=== PATIENT | female | born 1940 | race Two or more races ===

== ENCOUNTER 2024-01-19 16:23 | Inpatient (IN) | payer MEDICARE, OTHER ==
[~2024-01-19] VITALS: Ht 152.4 cm; Wt 104.3 kg
[2024-01-19] VITALS (21 sets, daily range): BP systolic 56–131; BP diastolic 40–83; TEMP 98.8–101.1; O2SAT 93–100
[2024-01-19] MEDS ORDERED: LOSA50TA39 PO (16:52)
[2024-01-19] MEDS ORDERED: APIX2.5T PO (16:52)
[2024-01-19] MEDS ORDERED: FERR325T28 PO (16:52)
[2024-01-19] MEDS ORDERED: INSU100I30 SQ (16:52)
[2024-01-19] MEDS ORDERED: ATOR40TA PO (16:52)
[2024-01-19] MEDS ORDERED: DICL100G34 TP (16:52)
[2024-01-19] MEDS ORDERED: BUME1TAB8 PO (16:52)
[2024-01-19] MEDS ORDERED: INSU100I4 SQ (16:52)
[2024-01-19] MEDS ORDERED: OMEP40CA21 PO (16:52)
[2024-01-19] MEDS ORDERED: ACET325T53 PO (16:52)
[2024-01-19] MEDS ORDERED: METO25TA4 PO (16:52)
[2024-01-19] MEDS ORDERED: IV LR 1000 ML 1,000 ML IV PRN (17:00)
[2024-01-19] MEDS ORDERED: DEXTROSE 50%-WATER 50 ML DISP.SYRIN IV PRN ×2 (17:30→20:00)
[2024-01-19] MEDS ORDERED: ONDANSETRON HCL/PF 4 MG/2 ML VIAL IVP PRN (17:30)
[2024-01-19] MEDS: NOREPINEPHRINE 8 MG in IV D5W 242 ML IV PRN (17:37)
[2024-01-19] MEDS: IV NS 0.9% 1,000 ML IV PRN (17:37)
[2024-01-19 17:58] LABS: BASOPHILS % (AUTO) 0.1 % (0.0-2.0); HEMATOCRIT 42 % (33-45); LYMPHOCYTES # (AUTO) 1.1 K/uL (0.8-4.8); MEAN CORPUSCULAR HEMOGLOBIN 29 PG (26.0-33.0); MEAN CORPUSCULAR HGB CONC 31 g/dl (31.0-36.0); MEAN CORPUSCULAR VOLUME 94 fL (82-100); MONOCYTES # (AUTO) 0.6 K/uL (0.1-1.30); MONOCYTES % (AUTO) 2.2 % (2.0-12.0); NEUTROPHILS # (AUTO) 27.1 K/uL (1.8-8.9); NEUTROPHILS % (AUTO) 93.7 % (43.0-81.0); PLATELET COUNT (AUTO) 202 K/uL (150-450); RED BLOOD CELL COUNT(AUTO) 4.49 MIL/uL (4.0-5.2); RED CELL DISTRIBUTION WIDTH 17.4 % (11.5-15.0); WHITE BLOOD COUNT (AUTO) 28.9 K/uL (4.3-11.0)
[2024-01-19] MEDS: MORPHINE SULFATE INJ 2 MG/ML DISP.SYRIN IV PRN (18:01)
[2024-01-19] MEDS: ACETAMINOPHEN 650 MG/SUPP.RECT RC PRN (18:02)
[2024-01-19 18:10] LABS: CARBON DIOXIDE 16 mmol/L (21-32); CHLORIDE 98 mmol/L (98-107); CREATININE 3.7 mg/dL (0.6-1.3); GLUCOSE 393 mg/dL (74-106); MAGNESIUM 1.6 mg/dL (1.8-2.4); POTASSIUM 5.5 mmol/L (3.5-5.1); SODIUM SERUM 133 mmol/L (136-145)
[2024-01-19] MEDS: BLOOD SUGAR DIAGNOSTIC 1 EACH STRIP IN SCH ×2 (18:17→23:49)
[2024-01-19] MEDS: Calcium Gluconate 1GM/10ML 9.3 MEQ in IV NS 0.9% 100 ML IV ONE (18:36)
[2024-01-19 18:39] LABS: CALCIUM, SERUM 4.7 mg/dL (8.5-10.1)
[2024-01-19 18:40] LABS: UREA NITROGEN, BLOOD 82 mg/dL (7-18)
[2024-01-19] MEDS: INSULIN REGULAR, HUMAN 100 UNIT/ML 3 ML VIAL SQ PRN ×2 (18:41→23:58)
[2024-01-19 20:13] LABS: ALANINE AMINOTRANSFERASE 51 U/L (12-78); ALBUMIN 2.1 g/dL (3.4-5.0); ALKALINE PHOSPHATASE 84 U/L (46-116); ASPARTATE AMINOTRANSFERASE 83 U/L (15-37); BILIRUBIN,DIRECT 0.2 mg/dL (0.0-0.2); BILIRUBIN,TOTAL 0.5 mg/dL (0.2-1.0); TOTAL PROTEIN, SERUM 6.1 g/dL (6.4-8.2)
[2024-01-19 20:17] LABS: LIPASE > 375 U/L (16-77)
[2024-01-19] MEDS: VANCOMYCIN HCL 1.25 GM in IV D5W 250 ML IV ONE (20:30)
[2024-01-19 20:41] LABS: INR 1.32 (0.91-1.10); PROTHROMBIN TIME 13.7 SECS (9.2-11.1)
[2024-01-19] MEDS: PROPOFOL 100 ML IV PRN (20:52)
[2024-01-19] MEDS ORDERED: ENOXAPARIN SODIUM 30 MG/0.3 ML DISP.SYRIN SQ SCH (21:00)
[2024-01-19] MEDS ORDERED: PROPOFOL 200 MG/20 ML VIAL IV ONE (21:01)
[2024-01-19] MEDS: MEROPENEM 500 MG in IV NS 0.9% 50 ML IV SCH (21:28)
[2024-01-19] MEDS: HEPARIN INFUSION/D5W 500 ML IV PRN (21:31)
[2024-01-19] MEDS: Sodium Bicarbonate 100 MEQ in IV 1/2NS 1000 ML 1,000 ML IV PRN (22:20)
[2024-01-19] MEDS: SODIUM BICARBONATE SYR 50 MEQ/50 ML DISP.SYRIN ONE (22:52)
[2024-01-20] VITALS (83 sets, daily range): BP systolic 62–167; BP diastolic 31–91; TEMP 98.2–98.8; O2SAT 97–100
[2024-01-20 05:13] LABS: BASOPHILS % (AUTO) 0.1 % (0.0-2.0); HEMATOCRIT 39 % (33-45); HEMOGLOBIN 12.5 g/dL (11.5-14.8); LYMPHOCYTES # (AUTO) 1.6 K/uL (0.8-4.8); LYMPHOCYTES % (AUTO) 5.6 % (20.0-44.0); MEAN CORPUSCULAR HEMOGLOBIN 30 PG (26.0-33.0); MEAN CORPUSCULAR HGB CONC 32 g/dl (31.0-36.0); MEAN CORPUSCULAR VOLUME 93 fL (82-100); MONOCYTES # (AUTO) 0.7 K/uL (0.1-1.30); MONOCYTES % (AUTO) 2.6 % (2.0-12.0); NEUTROPHILS # (AUTO) 26.4 K/uL (1.8-8.9); NEUTROPHILS % (AUTO) 91.7 % (43.0-81.0); PLATELET COUNT (AUTO) 192 K/uL (150-450); RED CELL DISTRIBUTION WIDTH 16.8 % (11.5-15.0); WHITE BLOOD COUNT (AUTO) 28.8 K/uL (4.3-11.0)
[2024-01-20 05:36] LABS: CHOLESTEROL 58 mg/dL (<200); HDL CHOLESTEROL 19 mg/dL (40-60); LDL 21 mg/dL (0-99); TRIGLYCERIDES 158 mg/dL (30-150)
[2024-01-20 06:45] LABS: BAND % (MANUAL) 6 % (0.0-5.0); LYMPHOCYTES % (MANUAL) 4 % (16-48); METAMYELOCYTES % 1 % (0-0); MONOCYTES % (MANUAL) 3 % (0-11.0); MYELOCYTES % 1 % (0-0); NEUTROPHILS % (MANUAL) 84 (42-76); PLATELET ESTIMATE ADEQUATE; PROMYELOCYTES % 1 % (0-0); SMUDGE CELLS FEW
[2024-01-20 06:46] LABS: ANISOCYTOSIS 1+
[2024-01-20 08:50] LABS: CARBON DIOXIDE 11 mmol/L (21-32); CHLORIDE 97 mmol/L (98-107); CREATININE 4.1 mg/dL (0.6-1.3); MAGNESIUM 1.6 mg/dL (1.8-2.4); PHOSPHORUS 2.8 mg/dL (2.5-4.9); POTASSIUM 5.6 mmol/L (3.5-5.1); SODIUM SERUM 128 mmol/L (136-145); UREA NITROGEN, BLOOD 80 mg/dL (7-18)
[2024-01-20 08:59] LABS: LIPASE > 375 U/L (16-77)
[2024-01-20 09:00] LABS: CALCIUM, SERUM 4.4 mg/dL (8.5-10.1); GLUCOSE 417 mg/dL (74-106)
[2024-01-20] MEDS: PANTOPRAZOLE 40 MG VIAL IV SCH (09:33)
[2024-01-20] MEDS: HYDROCORTISONE SOD SUCCINATE 100 MG/2 ML VIAL IV SCH (09:33)
[2024-01-20] MEDS: Calcium Gluconate 1GM/10ML 9.3 MEQ in IV NS 0.9% 100 ML IV ONE ×2 (14:12→17:35)
[2024-01-20] MEDS: BLOOD SUGAR DIAGNOSTIC 1 EACH STRIP IN SCH (15:00)
[2024-01-20] MEDS: INSULIN REGULAR, HUMAN 100 UNIT in IV NS 0.9% 99 ML IV PRN (15:48)
[2024-01-20] MEDS ORDERED: BLOOD SUGAR DIAGNOSTIC 1 EACH STRIP IN SCH (17:00)
[2024-01-20] MEDS ORDERED: DOSE PER PHARMACY MICAFUNGIN 1 EA XX PRN (17:00)
[2024-01-20] MEDS: MICAFUNGIN SODIUM 100 MG in IV NS 0.9% 100 ML IV SCH (17:59)
[2024-01-20] MEDS ORDERED: POTASSIUM PHOSPHATE MM 7.5 MMOL in IV NS 0.9% 100 ML IV SCH (18:30)
[2024-01-20] MEDS: VANCOMYCIN POST DIALYSIS 500MG IV PRN (18:53)
[2024-01-20 20:16] LABS: CARBON DIOXIDE 22 mmol/L (21-32); GLUCOSE 247 mg/dL (74-106); UREA NITROGEN, BLOOD 41 mg/dL (7-18)
[2024-01-20 20:24] LABS: CHLORIDE 94 mmol/L (98-107); CREATININE 2.8 mg/dL (0.6-1.3); MAGNESIUM 1.2 mg/dL (1.8-2.4); POTASSIUM 3.4 mmol/L (3.5-5.1); SODIUM SERUM 132 mmol/L (136-145)
[2024-01-20 20:31] LABS: CALCIUM, SERUM 5.4 mg/dL (8.5-10.1)
[2024-01-21] VITALS (97 sets, daily range): BP systolic 52–193; BP diastolic 34–90; TEMP 98–99.5; O2SAT 96–100
[2024-01-21] MEDS: SODIUM BICARBONATE SYR 50 MEQ/50 ML DISP.SYRIN ONE (01:45)
[2024-01-21 01:55] LABS: CARBON DIOXIDE 23 mmol/L (21-32); CHLORIDE 94 mmol/L (98-107); CREATININE 2.9 mg/dL (0.6-1.3); GLUCOSE 222 mg/dL (74-106); POTASSIUM 3.7 mmol/L (3.5-5.1); SODIUM SERUM 131 mmol/L (136-145); UREA NITROGEN, BLOOD 44 mg/dL (7-18)
[2024-01-21 02:16] LABS: CALCIUM, SERUM 4.9 mg/dL (8.5-10.1)
[2024-01-21 05:06] LABS: EOSINOPHILS # (AUTO) 0.4 K/uL (0.0-0.7); EOSINOPHILS % (AUTO) 1.6 % (0.0-6.0); HEMATOCRIT 32 % (33-45); HEMOGLOBIN 10.6 g/dL (11.5-14.8); LYMPHOCYTES # (AUTO) 1.1 K/uL (0.8-4.8); LYMPHOCYTES % (AUTO) 4.4 % (20.0-44.0); MEAN CORPUSCULAR HEMOGLOBIN 30 PG (26.0-33.0); MEAN CORPUSCULAR HGB CONC 34 g/dl (31.0-36.0); MEAN CORPUSCULAR VOLUME 88 fL (82-100); MONOCYTES # (AUTO) 0.5 K/uL (0.1-1.30); NEUTROPHILS # (AUTO) 22.5 K/uL (1.8-8.9); PLATELET COUNT (AUTO) 121 K/uL (150-450); RED BLOOD CELL COUNT(AUTO) 3.57 MIL/uL (4.0-5.2); RED CELL DISTRIBUTION WIDTH 16.1 % (11.5-15.0); WHITE BLOOD COUNT (AUTO) 24.5 K/uL (4.3-11.0)
[2024-01-21 05:34] LABS: ALANINE AMINOTRANSFERASE 105 U/L (12-78); ALKALINE PHOSPHATASE 68 U/L (46-116); ASPARTATE AMINOTRANSFERASE 220 U/L (15-37); BILIRUBIN,TOTAL 0.6 mg/dL (0.2-1.0); CARBON DIOXIDE 25 mmol/L (21-32); CHLORIDE 94 mmol/L (98-107); CREATININE 2.8 mg/dL (0.6-1.3); GLUCOSE 201 mg/dL (74-106); MAGNESIUM 1.2 mg/dL (1.8-2.4); PHOSPHORUS 2.4 mg/dL (2.5-4.9); POTASSIUM 3.8 mmol/L (3.5-5.1); SODIUM SERUM 131 mmol/L (136-145); TOTAL PROTEIN, SERUM 4.3 g/dL (6.4-8.2); UREA NITROGEN, BLOOD 42 mg/dL (7-18)
[2024-01-21 05:42] LABS: ALBUMIN 1.2 g/dL (3.4-5.0); CALCIUM, SERUM 4.2 mg/dL (8.5-10.1)
[2024-01-21] MEDS: Calcium Gluconate 0.465 MEQ/ML VIAL IV ONE ×2 (06:08→22:00)
[2024-01-21] MEDS: Calcium Gluconate 1GM/10ML 4.65 MEQ in IV NS 0.9% 100 ML IV ONE ×2 (06:09→22:00)
[2024-01-21 10:23] LABS: BAND % (MANUAL) 3 % (0.0-5.0); LYMPHOCYTES % (MANUAL) 4 % (16-48); MONOCYTES % (MANUAL) 5 % (0-11.0); NEUTROPHILS % (MANUAL) 88 (42-76)
[2024-01-21 10:24] LABS: ANISOCYTOSIS 1+; PLATELET ESTIMATE DECREASED
[2024-01-21] MEDS: Sodium Bicarbonate 100 MEQ in IV 1/2NS 1000 ML 1,000 ML IV SCH (11:30)
[2024-01-21 13:29] LABS: BASOPHILS % (AUTO) 0.1 % (0.0-2.0); EOSINOPHILS # (AUTO) 0.2 K/uL (0.0-0.7); EOSINOPHILS % (AUTO) 0.8 % (0.0-6.0); HEMATOCRIT 32 % (33-45); HEMOGLOBIN 10.4 g/dL (11.5-14.8); MEAN CORPUSCULAR HEMOGLOBIN 29 PG (26.0-33.0); MEAN CORPUSCULAR HGB CONC 33 g/dl (31.0-36.0); MEAN CORPUSCULAR VOLUME 88 fL (82-100); MONOCYTES # (AUTO) 0.5 K/uL (0.1-1.30); MONOCYTES % (AUTO) 2.2 % (2.0-12.0); NEUTROPHILS # (AUTO) 18.9 K/uL (1.8-8.9); NEUTROPHILS % (AUTO) 91.9 % (43.0-81.0); PLATELET COUNT (AUTO) 131 K/uL (150-450); RED BLOOD CELL COUNT(AUTO) 3.59 MIL/uL (4.0-5.2); WHITE BLOOD COUNT (AUTO) 20.5 K/uL (4.3-11.0)
[2024-01-21 13:49] LABS: BAND % (MANUAL) 2 % (0.0-5.0); LYMPHOCYTES % (MANUAL) 5 % (16-48); METAMYELOCYTES % 1 % (0-0); MONOCYTES % (MANUAL) 2 % (0-11.0); NEUTROPHILS % (MANUAL) 87 (42-76)
[2024-01-21 13:50] LABS: MYELOCYTES % 1 % (0-0); PLATELET ESTIMATE DECREASED; PROMYELOCYTES % 1 % (0-0)
[2024-01-21 13:51] LABS: ANISOCYTOSIS 1+
[2024-01-21 15:57] LABS: PHOSPHORUS 3.1 mg/dL (2.5-4.9)
[2024-01-21 16:12] LABS: MAGNESIUM 1.1 mg/dL (1.8-2.4)
[2024-01-21 16:46] LABS: CARBON DIOXIDE 26 mmol/L (21-32); CHLORIDE 91 mmol/L (98-107); GLUCOSE 259 mg/dL (74-106); POTASSIUM 3.6 mmol/L (3.5-5.1); SODIUM SERUM 129 mmol/L (136-145); UREA NITROGEN, BLOOD 46 mg/dL (7-18)
[2024-01-21 16:59] LABS: CALCIUM, SERUM 3.6 mg/dL (8.5-10.1)
[2024-01-21] MEDS: NOREPINEPHRINE 32 MG in IV NS 0.9% 250 ML IV PRN (19:06)
[2024-01-21 20:37] LABS: CARBON DIOXIDE 28 mmol/L (21-32); CHLORIDE 96 mmol/L (98-107); CREATININE 2.1 mg/dL (0.6-1.3); GLUCOSE 218 mg/dL (74-106); POTASSIUM 3.5 mmol/L (3.5-5.1); SODIUM SERUM 136 mmol/L (136-145); UREA NITROGEN, BLOOD 27 mg/dL (7-18)
[2024-01-21 20:44] LABS: CALCIUM, SERUM 4.5 mg/dL (8.5-10.1)
[2024-01-22] VITALS (98 sets, daily range): BP systolic 75–174; BP diastolic 34–86; TEMP 97.6–99.6; O2SAT 83–100
[2024-01-22] MEDS: BLOOD SUGAR DIAGNOSTIC 1 EACH STRIP IN SCH (00:27)
[2024-01-22] MEDS: INSULIN REGULAR, HUMAN 100 UNIT/ML 3 ML VIAL SQ PRN (00:29)
[2024-01-22 04:25] LABS: EOSINOPHILS % (AUTO) 0.4 % (0.0-6.0); HEMATOCRIT 28 % (33-45); HEMOGLOBIN 9.5 g/dL (11.5-14.8); LYMPHOCYTES # (AUTO) 0.7 K/uL (0.8-4.8); MEAN CORPUSCULAR HEMOGLOBIN 30 PG (26.0-33.0); MEAN CORPUSCULAR HGB CONC 34 g/dl (31.0-36.0); MEAN CORPUSCULAR VOLUME 89 fL (82-100); MONOCYTES # (AUTO) 0.3 K/uL (0.1-1.30); MONOCYTES % (AUTO) 2.6 % (2.0-12.0); PLATELET COUNT (AUTO) 91 K/uL (150-450); RED BLOOD CELL COUNT(AUTO) 3.16 MIL/uL (4.0-5.2); RED CELL DISTRIBUTION WIDTH 15.5 % (11.5-15.0); WHITE BLOOD COUNT (AUTO) 12.1 K/uL (4.3-11.0)
[2024-01-22 04:43] LABS: ALANINE AMINOTRANSFERASE 68 U/L (12-78); ALKALINE PHOSPHATASE 84 U/L (46-116); ASPARTATE AMINOTRANSFERASE 137 U/L (15-37); BILIRUBIN,TOTAL 0.9 mg/dL (0.2-1.0); CARBON DIOXIDE 30 mmol/L (21-32); CHLORIDE 94 mmol/L (98-107); CREATININE 2.4 mg/dL (0.6-1.3); GLUCOSE 286 mg/dL (74-106); MAGNESIUM 1.3 mg/dL (1.8-2.4); PHOSPHORUS 3.6 mg/dL (2.5-4.9); POTASSIUM 3.3 mmol/L (3.5-5.1); SODIUM SERUM 134 mmol/L (136-145); TOTAL PROTEIN, SERUM 3.8 g/dL (6.4-8.2); UREA NITROGEN, BLOOD 34 mg/dL (7-18)
[2024-01-22 05:03] LABS: ALBUMIN 1.1 g/dL (3.4-5.0); CALCIUM, SERUM 3.8 mg/dL (8.5-10.1)
[2024-01-22] MEDS: Calcium Gluconate 0.465 MEQ/ML VIAL IV ONE (06:00)
[2024-01-22] MEDS: Calcium Gluconate 1GM/10ML 4.65 MEQ in IV NS 0.9% 100 ML IV ONE (06:00)
[2024-01-22 06:03] LABS: ANISOCYTOSIS 1+; BAND % (MANUAL) 2 % (0.0-5.0); BASOPHILS % (MANUAL) 0 % (0.0-2.0); EOSINOPHILS % (MANUAL) 0 % (0-4); HYPOCHROMASIA RARE; LYMPHOCYTES % (MANUAL) 5 % (16-48); MONOCYTES % (MANUAL) 1 % (0-11.0); NEUTROPHILS % (MANUAL) 92 (42-76); PLATELET ESTIMATE DECREASED
[2024-01-22] MEDS: POTASSIUM CL. PREMIX PERIPHER. 50 ML IV SCH (09:42)
[2024-01-22] MEDS: Magnesium 1GM/D5W 100ML PREMIX 100 ML IV SCH (09:42)
[2024-01-22 09:43] LABS: ABG BASE EXCESS 1.4 mmol/L (-2.0-2.0); ABG OXYGEN SATURATION 94.3 % (92.0-98.5); ABG PCO2 29.4 mmHg (35.0-45.0); ABG PH 7.524 (7.350-7.450); ABG PO2 69.4 mmHg (75.0-100.0); ABG TOTAL HEMOGLOBIN 10.3 G/dL (12.0-16.0); COHb 0.3 % (0.5-1.5); SITE, ABG Right Radial
[2024-01-22] MEDS: IV NS 0.9% 1,000 ML IV PRN (09:50)
[2024-01-22 09:54] LABS: ABG BASE EXCESS 1.7 mmol/L (-2.0-2.0); ABG OXYGEN SATURATION 94.3 % (92.0-98.5); ABG PCO2 28.1 mmHg (35.0-45.0); ABG PO2 65.7 mmHg (75.0-100.0); ABG TOTAL HEMOGLOBIN 11.6 G/dL (12.0-16.0); AaDO2 187.2 mmHg; COHb 0.5 % (0.5-1.5); MetHb 0.3 % (0.0-1.5); O2Hb 93.5 % (94.0-97.0); SITE, ABG Right Radial
[2024-01-22] MEDS ORDERED: IV NS 0.9% 1,000 ML BAG IV PRN (10:00)
[2024-01-22 16:40] LABS: APPEARANCE,URINE SLIGHTLY CLOUDY (CLEAR); BILIRUBIN,URINE 2+ (NEGATIVE); BLOOD, URINE 1+ Ery/uL (NEGATIVE); COLOR,URINE AMBER (YELLOW); KETONES,URINE TRACE mg/dL (NEGATIVE); LEUKOCYTE ESTERASE ,URINE NEGATIVE (NEGATIVE); NITRITE, URINE POSITIVE (NEGATIVE); PROTEIN,URINE 2+ mg/dl (NEGATIVE); UGLUCOSE TRACE mg/dL (NEGATIVE)
[2024-01-22 17:04] LABS: URINE AMORPHOUS URATE Few /HPF (None Seen)
[2024-01-22 17:05] LABS: MUCUS,URINE Rare /LPF (None Seen)
[2024-01-22 17:07] LABS: COARSE GRANULAR CASTS,URINE Few /LPF (None Seen)
[2024-01-22 17:08] LABS: ADD URINE CULTURE YES; BACTERIA,URINE 1+ /HPF (None Seen)
[2024-01-22] MEDS ORDERED: VANCOMYCIN 1 GM in IV D5W 250ml IV SCH (20:00)
[2024-01-23] VITALS (83 sets, daily range): BP systolic 65–148; BP diastolic 22–74; TEMP 97.6–97.9; O2SAT 98–100
[2024-01-23 03:07] LABS: HEPATITIS B SURFACE AB Non Reactive (.)
[2024-01-23] MEDS: IV NS 0.9% 250 ML IV PRN (04:30)
[2024-01-23 04:51] LABS: EOSINOPHILS # (AUTO) 0.1 K/uL (0.0-0.7); EOSINOPHILS % (AUTO) 0.6 % (0.0-6.0); HEMATOCRIT 26 % (33-45); HEMOGLOBIN 8.7 g/dL (11.5-14.8); LYMPHOCYTES % (AUTO) 8.2 % (20.0-44.0); MEAN CORPUSCULAR HEMOGLOBIN 30 PG (26.0-33.0); MEAN CORPUSCULAR HGB CONC 33 g/dl (31.0-36.0); MEAN CORPUSCULAR VOLUME 88 fL (82-100); MONOCYTES # (AUTO) 0.4 K/uL (0.1-1.30); MONOCYTES % (AUTO) 2.8 % (2.0-12.0); NEUTROPHILS # (AUTO) 11.2 K/uL (1.8-8.9); NEUTROPHILS % (AUTO) 88.4 % (43.0-81.0); PLATELET COUNT (AUTO) 72 K/uL (150-450); RED BLOOD CELL COUNT(AUTO) 2.96 MIL/uL (4.0-5.2); WHITE BLOOD COUNT (AUTO) 12.6 K/uL (4.3-11.0)
[2024-01-23 05:09] LABS: CARBON DIOXIDE 24 mmol/L (21-32); CHLORIDE 98 mmol/L (98-107); CREATININE 2.4 mg/dL (0.6-1.3); GLUCOSE 225 mg/dL (74-106); MAGNESIUM 1.6 mg/dL (1.8-2.4); PHOSPHORUS 3.6 mg/dL (2.5-4.9); POTASSIUM 2.8 mmol/L (3.5-5.1); SODIUM SERUM 137 mmol/L (136-145); UREA NITROGEN, BLOOD 36 mg/dL (7-18)
[2024-01-23 05:19] LABS: CALCIUM, SERUM 3.8 mg/dL (8.5-10.1)
[2024-01-23 05:56] LABS: ANISOCYTOSIS 1+; BASOPHILS % (MANUAL) 0 % (0.0-2.0); EOSINOPHILS % (MANUAL) 0 % (0-4); LYMPHOCYTES % (MANUAL) 6 % (16-48); MONOCYTES % (MANUAL) 3 % (0-11.0); NEUTROPHILS % (MANUAL) 91 (42-76); PLATELET ESTIMATE DECREASED
[2024-01-23] MEDS ORDERED: Z GUARD REMEDY 4 OZ OINT TP PRN (08:00)
[2024-01-23] MEDS: CLOTRIMAZOLE 1% 15 GM TUBE TP SCH (08:24)
[2024-01-23] MEDS: Z GUARD REMEDY 4 OZ OINT TP SCH (08:25)
[2024-01-23] MEDS ORDERED: GLUCERNA 1.2 1,000 ML BOTTLE NG PRN (11:30)
[2024-01-23] MEDS: NEPRO 1,000 ML BOTTLE GT PRN (12:36)
[2024-01-23] MEDS: PROSOURCE / PROSTAT (PYXIS) 30 ML UDC GT SCH (13:46)
[2024-01-24] VITALS (76 sets, daily range): BP systolic 66–159; BP diastolic 35–92; TEMP 97.8–98.6; O2SAT 92–100
[2024-01-24 05:12] LABS: EOSINOPHILS # (AUTO) 0.2 K/uL (0.0-0.7); HEMATOCRIT 27 % (33-45); HEMOGLOBIN 9.2 g/dL (11.5-14.8); LYMPHOCYTES # (AUTO) 0.8 K/uL (0.8-4.8); LYMPHOCYTES % (AUTO) 4.8 % (20.0-44.0); MEAN CORPUSCULAR HEMOGLOBIN 30 PG (26.0-33.0); MEAN CORPUSCULAR HGB CONC 34 g/dl (31.0-36.0); MEAN CORPUSCULAR VOLUME 89 fL (82-100); MONOCYTES # (AUTO) 0.6 K/uL (0.1-1.30); MONOCYTES % (AUTO) 3.6 % (2.0-12.0); NEUTROPHILS # (AUTO) 14.2 K/uL (1.8-8.9); NEUTROPHILS % (AUTO) 90.6 % (43.0-81.0); PLATELET COUNT (AUTO) 73 K/uL (150-450); RED BLOOD CELL COUNT(AUTO) 3.07 MIL/uL (4.0-5.2); RED CELL DISTRIBUTION WIDTH 15.8 % (11.5-15.0); WHITE BLOOD COUNT (AUTO) 15.7 K/uL (4.3-11.0)
[2024-01-24 05:16] LABS: CARBON DIOXIDE 20 mmol/L (21-32); CHLORIDE 97 mmol/L (98-107); CREATININE 2.5 mg/dL (0.6-1.3); GLUCOSE 255 mg/dL (74-106); PHOSPHORUS 4.7 mg/dL (2.5-4.9); POTASSIUM 3.1 mmol/L (3.5-5.1); SODIUM SERUM 132 mmol/L (136-145); UREA NITROGEN, BLOOD 36 mg/dL (7-18)
[2024-01-24 05:48] LABS: CALCIUM, SERUM 3.5 mg/dL (8.5-10.1)
[2024-01-24 06:30] LABS: ANISOCYTOSIS 1+; BASOPHILS % (MANUAL) 0 % (0.0-2.0); EOSINOPHILS % (MANUAL) 0 % (0-4); LYMPHOCYTES % (MANUAL) 6 % (16-48); MONOCYTES % (MANUAL) 4 % (0-11.0); NEUTROPHILS % (MANUAL) 90 (42-76); PLATELET ESTIMATE DECREASED
[2024-01-24] MEDS: Calcium Gluconate 1GM/10ML 4.65 MEQ in IV NS 0.9% 100 ML IV ONE ×2 (08:05→21:21)
[2024-01-24 09:06] LABS: BILIRUBIN,DIRECT 0.6 mg/dL (0.0-0.2); TOTAL PROTEIN, SERUM 4.1 g/dL (6.4-8.2)
[2024-01-24] MEDS: CALCIUM CARBONATE 1,250 MG/5 ML UDC GT SCH (14:05)
[2024-01-25] VITALS (99 sets, daily range): BP systolic 73–173; BP diastolic 36–74; TEMP 98.3–98.8; O2SAT 97–100
[2024-01-25 05:10] LABS: EOSINOPHILS % (AUTO) 0.1 % (0.0-6.0); HEMATOCRIT 26 % (33-45); HEMOGLOBIN 8.4 g/dL (11.5-14.8); LYMPHOCYTES % (AUTO) 7.2 % (20.0-44.0); MEAN CORPUSCULAR HEMOGLOBIN 29 PG (26.0-33.0); MEAN CORPUSCULAR HGB CONC 33 g/dl (31.0-36.0); MEAN CORPUSCULAR VOLUME 89 fL (82-100); MONOCYTES # (AUTO) 0.3 K/uL (0.1-1.30); NEUTROPHILS % (AUTO) 90.7 % (43.0-81.0); PLATELET COUNT (AUTO) 59 K/uL (150-450); RED CELL DISTRIBUTION WIDTH 15.8 % (11.5-15.0); WHITE BLOOD COUNT (AUTO) 14.3 K/uL (4.3-11.0)
[2024-01-25 05:36] LABS: ANISOCYTOSIS 1+; BAND % (MANUAL) 3 % (0.0-5.0); BASOPHILS % (MANUAL) 0 % (0.0-2.0); EOSINOPHILS % (MANUAL) 0 % (0-4); LYMPHOCYTES % (MANUAL) 9 % (16-48); MONOCYTES % (MANUAL) 3 % (0-11.0); NEUTROPHILS % (MANUAL) 85 (42-76); PLATELET ESTIMATE DECREASED
[2024-01-25 06:15] LABS: CARBON DIOXIDE 22 mmol/L (21-32); CHLORIDE 100 mmol/L (98-107); CREATININE 2.9 mg/dL (0.6-1.3); GLUCOSE 336 mg/dL (74-106); PHOSPHORUS 5.3 mg/dL (2.5-4.9); POTASSIUM 2.8 mmol/L (3.5-5.1); SODIUM SERUM 137 mmol/L (136-145); UREA NITROGEN, BLOOD 43 mg/dL (7-18)
[2024-01-25 07:11] LABS: CALCIUM, SERUM 4.6 mg/dL (8.5-10.1)
[2024-01-25] MEDS: Calcium Gluconate 1GM/10ML 4.65 MEQ in IV NS 0.9% 100 ML IV ONE ×2 (08:15→11:53)
[2024-01-25] MEDS: PHENYLEPHRINE 100 MG in IV NS 0.9% 240 ML IV PRN (18:24)
[2024-01-25 21:01] LABS: LACTIC ACID 11.7 mmol/L (0.4-2.0)
[2024-01-25 21:08] LABS: CREATINE KINASE, TOTAL 3685 U/L (26-192)
[2024-01-26] VITALS (90 sets, daily range): BP systolic 54–144; BP diastolic 19–76; TEMP 98.7–98.9; O2SAT 63–100
[2024-01-26 00:44] LABS: BILIRUBIN,DIRECT 1.2 mg/dL (0.0-0.2); BILIRUBIN,TOTAL 1.6 mg/dL (0.2-1.0)
[2024-01-26 00:50] LABS: LACTIC ACID REFLEX 11.3 mmol/L (0.4-1.9)
[2024-01-26 05:18] LABS: BASOPHILS % (AUTO) 0.1 % (0.0-2.0); HEMATOCRIT 30 % (33-45); HEMOGLOBIN 9.4 g/dL (11.5-14.8); LYMPHOCYTES # (AUTO) 1.8 K/uL (0.8-4.8); MEAN CORPUSCULAR HEMOGLOBIN 29 PG (26.0-33.0); MEAN CORPUSCULAR HGB CONC 32 g/dl (31.0-36.0); MEAN CORPUSCULAR VOLUME 92 fL (82-100); MONOCYTES # (AUTO) 0.9 K/uL (0.1-1.30); NEUTROPHILS # (AUTO) 19.6 K/uL (1.8-8.9); NEUTROPHILS % (AUTO) 87.9 % (43.0-81.0); PLATELET COUNT (AUTO) 56 K/uL (150-450); RED BLOOD CELL COUNT(AUTO) 3.23 MIL/uL (4.0-5.2); RED CELL DISTRIBUTION WIDTH 16.3 % (11.5-15.0); WHITE BLOOD COUNT (AUTO) 22.2 K/uL (4.3-11.0)
[2024-01-26] MEDS: NOREPINEPHRINE 4 MG/4 ML AMPUL IV ONE (05:36)
[2024-01-26 05:39] LABS: CHLORIDE 100 mmol/L (98-107); CREATININE 3.8 mg/dL (0.6-1.3); GLUCOSE 144 mg/dL (74-106); POTASSIUM 4.5 mmol/L (3.5-5.1); SODIUM SERUM 137 mmol/L (136-145); UREA NITROGEN, BLOOD 55 mg/dL (7-18)
[2024-01-26 06:09] LABS: CALCIUM, SERUM 5.8 mg/dL (8.5-10.1); CARBON DIOXIDE 9 mmol/L (21-32)
[2024-01-26 06:36] LABS: BAND % (MANUAL) 1 % (0.0-5.0); BASOPHILS % (MANUAL) 0 % (0.0-2.0); EOSINOPHILS % (MANUAL) 0 % (0-4); LYMPHOCYTES % (MANUAL) 6 % (16-48); MONOCYTES % (MANUAL) 3 % (0-11.0); NEUTROPHILS % (MANUAL) 90 (42-76); PLATELET ESTIMATE DECREASED
[2024-01-26 06:37] LABS: ANISOCYTOSIS 1+; OVALOCYTES 1+
[2024-01-26] MEDS ORDERED: IV NS 0.9% 1,000 ML IV PRN (11:00)
[2024-01-26] MEDS: SODIUM BICARBONATE SYR 50 MEQ/50 ML DISP.SYRIN IV ONE (11:26)
[2024-01-26] MEDS: DEXTROSE 50%-WATER 50 ML DISP.SYRIN IV PRN (11:48)
[2024-01-26] MEDS ORDERED: Sodium Bicarbonate 150 MEQ in IV D5W 1,000 ML IV PRN (14:00)
[2024-01-26] MEDS: Sodium Bicarbonate 150 MEQ in IV D5W 1,000 ML IV SCH (14:10)
[2024-01-26] MEDS: ALBUMIN 25% 25 GM in PREMIX 1 EA IV PRN (17:11)
[2024-01-26] MEDS: METOCLOPRAMIDE HCL 10 MG/2 ML VIAL IV SCH (21:55)
[2024-01-26] MEDS: SODIUM BICARBONATE SYR 50 MEQ/50 ML DISP.SYRIN ONE (23:14)
[2024-01-27] VITALS (24 sets, daily range): BP systolic 47–106; BP diastolic 20–61; TEMP 98.5; O2SAT 75–100
[2024-01-27] MEDS ORDERED: VASOPRESSIN INJ 40 UNIT in IV NS 0.9% 38 ML IV PRN (01:30)
[2024-01-27] MEDS: VASOPRESSIN INJ 40 UNIT in IV NS 0.9% 38 ML IV PRN (01:40)
[2024-01-27] MEDS: VASOPRESSIN INJ 20 UNIT/ML VIAL ONE (01:45)
[2024-01-27] MEDS: PHENYLEPHRINE 10 MG/ML VIAL ONE (02:09)
[2024-01-27] MEDS ORDERED: PANTOPRAZOLE 40 MG/PACK PACK GT SCH (09:00)
== END 2024-01-27 10:54 | DRG 870 ==
LOC: ICU 16:28
PROVIDERS: ATTEND Nurse Practitioner Acute Care
PROC: 02HV33Z Insertion of Infusion Device into Superior Vena Cava, Percutaneous Approach (ICD-10-PCS; 2024-01-19)
PROC: B548ZZA Ultrasonography of Superior Vena Cava, Guidance (ICD-10-PCS; 2024-01-19)
PROC: 5A1955Z Respiratory Ventilation, Greater than 96 Consecutive Hours (ICD-10-PCS; principal; 2024-01-20)
PROC: 0BH17EZ Insertion of Endotracheal Airway into Trachea, Via Natural or Artificial Opening (ICD-10-PCS; 2024-01-20)
PROC: 5A1D70Z Performance of Urinary Filtration, Intermittent, Less than 6 Hours Per Day (ICD-10-PCS; 2024-01-20)
PROC: 5A1D70Z Performance of Urinary Filtration, Intermittent, Less than 6 Hours Per Day (ICD-10-PCS; 2024-01-20)
DX: A41.9 Sepsis, unspecified organism (principal); K85.90 Acute pancreatitis without necrosis or infection, unspecified; G93.41 Metabolic encephalopathy; I21.A1 Myocardial infarction type 2; J96.01 Acute respiratory failure with hypoxia; R65.21 Severe sepsis with septic shock; N17.0 Acute kidney failure with tubular necrosis; I13.0 Hypertensive heart and chronic kidney disease with heart failure and stage 1 through stage 4 chronic kidney disease, or unspecified chronic kidney disease; N17.9 Acute kidney failure, unspecified; E87.4 Mixed disorder of acid-base balance; J98.11 Atelectasis; J90 Pleural effusion, not elsewhere classified; N39.0 Urinary tract infection, site not specified; R18.8 Other ascites; N18.9 Chronic kidney disease, unspecified; Z66 Do not resuscitate; D64.9 Anemia, unspecified; E78.5 Hyperlipidemia, unspecified; I50.9 Heart failure, unspecified; K21.9 Gastro-esophageal reflux disease without esophagitis; E11.22 Type 2 diabetes mellitus with diabetic chronic kidney disease; Z79.4 Long term (current) use of insulin; Z79.01 Long term (current) use of anticoagulants; Z79.899 Other long term (current) drug therapy; E87.5 Hyperkalemia; E83.51 Hypocalcemia; E83.39 Other disorders of phosphorus metabolism; E83.42 Hypomagnesemia; E88.09 Other disorders of plasma-protein metabolism, not elsewhere classified; I48.91 Unspecified atrial fibrillation; K74.60 Unspecified cirrhosis of liver; K80.20 Calculus of gallbladder without cholecystitis without obstruction; K82.8 Other specified diseases of gallbladder; M89.8X9 Other specified disorders of bone, unspecified site; N26.1 Atrophy of kidney (terminal); B96.89 Other specified bacterial agents as the cause of diseases classified elsewhere; Z95.0 Presence of cardiac pacemaker; D69.6 Thrombocytopenia, unspecified; E11.65 Type 2 diabetes mellitus with hyperglycemia
CPT/HCPCS: 31720; 36415; 36569; 36600; 70450-TC; 71045-TC; 74018; 76700-TC; 80048-TC; 80053-TC; 80061-TC; 80076-TC; 80202-TC; 81001; 82140-TC; 82247-TC; 82248-TC; 82330; 82533; 82550-TC; 82553; 82607-TC; 82803-TC; 82962-TC; 83605-TC; 83690-TC; 83735-TC; 83880; 83921; 84100-TC; 84443-TC; 84484-TC; 85025-TC; 85610-TC; 85652-TC; 85730-TC; 86140-TC; 86706; 86850-TC; 87040-TC; 87081-TC; 87086-TC; 87340; 90935-TC; 93307-TC; 93880-TC; 94002-TC; 94003-TC; 94762-TC; 94799-TC; A4216; A4223; G0378; J0610; J1644; J1720; J1815; J2185; J2248; J2270; J2470; J2704; J2765; J3370; J3475; J3480; J3490; J7030; J7042; J7050; J7060; J7070; P9047